=== PATIENT | female | born 1975 | race Caucasian/White ===

== ENCOUNTER → 2020-05-27 | Outpatient (CLI) | payer OTHER ==
[~2020-05-27] MED LIST: ACET1TAB33 PO; CYCL10TA2 PO; LIDO700A21 TP; OXYC1TAB22 PO; PREG150C PO; TRAZ-118 PO
--- NOTE | 2020-05-27 13:47 | PDOC1 ---
INITIAL PAIN CONSULT DATE OF SERVICE: DOS: DATE: 05/27/20 TIME: 13:39 CHIEF COMPLAINT: Chief Complaint: Neck and right upper extremity pain HISTORY OF PRESENT ILLNESS: 45-year-old female presents with history of pain base the neck right upper extremity beginning initially after an injury when she fell on some ice and struck her head in May 2018 now much worse since February 2020 without any secondary injury. Patient reports pain is in the base the neck rating the right upper extremity anteriorly posteriorly deltoid scapular region clavicle region as well as the entire arm anterior posterior to the fingers with some numbness into the thumb and first finger more specifically. Patient scribes pain is constant sharp throbbing shooting with numbness radiating pain in the right arm and hand changes during the day worse with activity with repetitive motions reaching or weight lifting patient ports the burning pain is also aching the base the neck and the upper extremity. Patient reports it wakes her from sleep least 4-5 times at night is effective bowel bladder control or ability to walk reports that it is difficult holding onto items has been dropping smaller items and has difficulty with tactile sensation on the right hand as well. Patient has done physical therapy and continues to do that as an outpatient is also taking oxycodone Neurontin Lyrica and Flexeril all of which does take the edge off of the pain but did not decrease it significantly. Patient did have MRI scan of the cervical spine which is not available for review at this time however she is recently seen her neurosurgeon yesterday, who is recommending a CT scan with contrast and we will await those results as well. Patient rates his stability of 0-10 10 being the worst is a 6 with him home responsibilities and recreation 7 with social activity and self-care 9 with occupational activities to a sexual behavior 7 with self-care and 8 with life support activities especially sleeping. PAST MEDICAL HISTORY: PMH: Concussion and balance issues otherwise patient's been in good health PREVIOUS SURGERIES: Past Surgical Hx: Anterior cervical discectomy 2018 CURRENT MEDICATIONS: Current Meds: Active Scripts Medications Dose Route/Sig Max Daily Dose Days Date Category Dose Instructions Trazodone Hcl 50 Mg Tablet 1 Tab PO QHS 05/27/20 Reported Lidocaine PATCH (Lidocaine) 1 Each Adh..patch 1 Each TP DAILY 05/27/20 Reported REMOVE AFTER 12 HOURS Cyclobenzaprine Hcl 10 Mg Tablet 1 Tab PO TID 05/27/20 Reported Lyrica (Pregabalin) 150 Mg Capsule 150 Mg PO BID 30 05/27/20 Reported Acetaminophen-Cod #3 Tablet (Acetaminophen/Codeine Phosphate) 1 Each Tablet 1 Tab PO PRN Q6HRS PRN 05/27/20 Reported Percocet 10-325 Mg Tablet (Oxycodone/Acetaminophen) 1 Each Tablet 1 Tab PO PRN Q6HRS PRN 05/27/20 Reported FAMILY HISTORY: Family Hx: No major medical problems or conditions SOCIAL HISTORY: Social Hx: Patient drinks alcohol maybe once a month does not smoke not use any illegal illicit recreational drugs is single lives locally has 1 child living at home with her and works as a nurse practitioner REVIEW OF SYSTEMS: ROS: Positive for those items mentioned in history of present illness, all systems are reviewed, otherwise negative, is complete full and well-documented on patient's chart PHYSICAL EXAM: VS: Blood pressure is 139/76 pulse 86 respiration 16 temperature is 98.1 F height is 5 foot 8 inches weight is 193 pounds. PE: PHYSICAL EXAMINATION: GENERAL: The patient is awake, alert, oriented, appropriate, very pleasant dem eanor HEENT: Shows normocephalic, atraumatic. Extraocular movements are intact and symmetrical. Oral cavity: Mucous membranes moist and pink. Dentition is intact. NECK: Shows anterior throat supple without palpable lymphadenopathy noted. Swallow reflex symmetrical. CHEST: Shows normal on inspection. Breath sounds are clear bilaterally. HEART: Shows S1, S2 clear. No murmurs auscultated. ABDOMEN: Soft, nontender, nondistended, obese. No palpable organomegaly is noted. No rebound or guarding demonstrated. BACK: Shows spine grossly in the midline. Normal-appearing cervical lordotic curvature. Cervical paraspinous muscles show symmetrical with inspection on palpation some moderate tenderness diffusely in the inferior aspect the cervical paraspinous musculature on the right only and into the superior medial trapezius as well. Patient shows good rotation motion cervical spine both laterally greater than 45 degrees right and left with full extension and full forward flexion with some minor tenderness with flexion only. There is slightly increased thoracic kyphosis, some minor flattening of the lumbar lordotic curvature. EXTREMITIES: Upper extremities show deep tendon reflexes 2+ in the biceps and triceps tendons. Motor exam is 4 on a scale of 5 with right ethyl blender, biceps and triceps flexion and 5/5 on the left. Peripheral pulses are 2+ radial. No peripheral edema is noted bilaterally. Shoulder shrug is strong and intact without loss of strength on resistance as is abduction of the shoulders at 90 degrees without loss of resistance bilaterally. Upper extremities are warm and dry to touch, equal in color and appearance. SKIN: Shows warm and dry, good turgor. No edema. No sores, rashes or bruising throughout. IMPRESSION: Impression: 45-year-old female with increasing pain base of neck right upper extremity in a C6-7 dermatomal distribution and following a radicular fashion times the past [address] scan with contrast pending Plan: Options were discussed with the patient including conservative medical management physical therapies interventional techniques that she is already doing physical therapy and has had conservative medical management as she is interested in interventional techniques. We discussed a cervical epidural steroid injection using description as well as anatomical model to describe the procedure. We will wait for preauthorization with insurance provider once this is obtained we will have her return for a translaminar C6-7 cervical epidural steroid injection. In the meantime patient will continue with stretching strength exercises and physical therapy as outlined. SUNDEEP ESQUIVEL MD May 27, 2020 13:47
== END | disposition home or self-care (01) ==
LOC: PNCL 07:31
PROVIDERS: ATTEND Anesthesiology
DX: M79.601 Pain in right arm (principal); M54.2 Cervicalgia; Z98.890 Other specified postprocedural states; Z79.899 Other long term (current) drug therapy
CPT/HCPCS: G0463

== ENCOUNTER → 2020-06-08 | Outpatient (CLI) | payer OTHER ==
[~2020-06-08] MED LIST changes: +IOHEXOL 300 MG/ML 100ML VIAL. IV ONE
--- NOTE | 2020-06-09 09:01 | KCIC ---
CT scan of the cervical spine without and with contrast 06/08/2020 CLINICAL HISTORY: Neck pain which radiates down the right arm since February 2020 . History of previ ous cervical surgery. TECHNIQUE: Contiguous, 0.625 mm axial sections were obtained through the cervical spine without and w ith use of intravenous contrast. 2 mm reconstructed sagittal, axial and coronal images were obtained. 75 cc of Omnipaque 300 were administered intravenously during this examination. One or more of the following individualized dose reduction techniques were utilized for this study: 1. Automated exposure control. 2. Adjustment of the mA and/or kV according to patient size. 3. Use of iterative reconstruction technique. FINDINGS: Comparison study is dated 05/05/2020. This was performed at [facility]. Sagittal and coronal reconstructed images demonstrate minimal lateral curvature of the cervical spine convex to the left. There is straightening of the normal cervical lordosis. The patient is post disc replacement at C5-6. No fracture or subluxation of the cervical vertebrae seen. No area of abnormal contrast enhancement i s noted. On the axial images throughout the cervical disc spaces, degenerative changes are seen consisting of minimal to mild generalized disc bulges and degenerative changes involving the uncovertebral and face t joints. These findings do not result in significant central spinal canal stenosis at any level. Curtis y mild right neural foraminal stenosis is seen at C3-4. No additional area of neural foraminal stenos is is seen. Since the previous examination there has been no significant interval change. IMPRESSION: 1. Post disc replacement at C5-6. 2. Degenerative changes are seen involving the cervical spine as discussed above. These findings do n ot result in significant central spinal canal stenosis. Very mild right neural foraminal stenosis is seen at C3-4. No acute osseous abnormality is seen. Electronically signed by: Anselmo Garrison MD (06/09/2020 8:59 AM) [id number]
== END ==
LOC: KCIC CT 10:17
PROVIDERS: ATTEND Neurological Surgery
DX: M47.22 Other spondylosis with radiculopathy, cervical region (principal); M48.02 Spinal stenosis, cervical region; M50.10 Cervical disc disorder with radiculopathy, unspecified cervical region
CPT/HCPCS: 72127; Q9967

== ENCOUNTER → 2020-06-11 | Outpatient (CLI) | payer OTHER ==
[~2020-06-11] MED LIST changes: +IOHEXOL 180 MG/ML 10 ML VIAL. ONE; -IOHEXOL 300 MG/ML 100ML VIAL. IV ONE; +methylPREDNISolone ACETATE 40 MG/ML VIAL. ONE; +methylPREDNISolone ACETATE 80 MG/ML VIAL. ONE
--- NOTE | 2020-06-11 08:29 | PDOC ---
Progress Note - Pain Clinic Date of Service: DOS: DATE: 06/11/20 TIME: 08:25 Diagnosis: Dx: Cervical radiculopathy with cervical degenerative disease and cervical postlaminectomy syndrome History or Present Illness: HPI: 45-year-old female returns for follow-up status post initial evaluation and preauthorization for cervical epidural steroid injection. Patient is obtained this now would like to proceed. Patient points still pain in the right upper extremity shoulder and base the neck as it was previously without significant change. Patient rates her pain as an 8 on scale 10 is worse with the past week 7 on average 5 its least and is a 7 today patient reports it is waking her from sleep least 5-6 times a night worse with weight lifting of the right upper extremity repetitive motions reaching over her head with her right arm. Patient scribes pain is aching and tight dull in the base the neck tingling and burning in the arm and shoulder radiating and constant unbearable at times. Patient reports no new motor or sensory deficits or other complaints Physical Exam: VS: Blood pressure is 124/87 pulse 77 respirations 16 temperature 97.4 F weight is 195 pounds PE: PHYSICAL EXAMINATION: GENERAL: The patient is awake, alert, oriented, appropriate, very pleasant demeanor HEENT: Shows normocephalic, atraumatic. Extraocular movements are intact and symmetrical. Oral cavity: Mucous membranes moist and pink. NECK: Shows anterior throat supple without palpable lymphadenopathy noted. Swallow reflex symmetrical. CHEST: Shows normal on inspection. Breath sounds are clear bilaterally. HEART: Shows S1, S2 clear. No murmurs auscultated. ABDOMEN: Soft, nontender, nondistended. No palpable organomegaly is noted. BACK: Shows spine grossly in the midline. Normal-appearing cervical lordotic curvature. Cervical paraspinous muscles show symmetrical on inspection with palpation some moderate tenderness diffusely bilaterally but only diffusely without significant radiation patient shows good rotation motion cervical spine both laterally greater than 45 degrees closer to 90 degrees right and left well is full extension full forward flexion without significant increase in pain or radicular symptoms. There is slightly increased thoracic kyphosis, some minor flattening of the lumbar lordotic curvature. EXTREMITIES: Upper extremities show deep tendon reflexes 2+ in the biceps and triceps tendons. Motor exam is 4 on a scale of 5 with right shop tailor, biceps and triceps flexion and 5/5 on the left. Peripheral pulses are 2+ radial. No peripheral edema is noted bilaterally. Upper extremities are warm and dry to touch, equal in color and appearance. SKIN: Shows warm and dry, good turgor. No edema. No sores, rashes or bruising throughout. Procedure: Procedure: Options were discussed with the patient. Patient chart reviews her current medication regimen updated current review of systems updated today as well. We will proceed with a cervical epidural steroid injection today with fluoroscopic guidance. Risks were discussed including but not limited to: Bleeding, infection, possibility of epidural hematoma and subsequent neurological compromise, dural puncture, headaches, spinal cord and/or nerve damage, side effects of steroid medication, and poor results regarding pain control. Patient understands wished to proceed. Patient will return to clinic in approximately 2 weeks for follow-up, was counseled as to return appointment activity level, and side effects to be aware of. Medication Injected: Med Injected: Procedure cervical epidural steroid injection at the C6-7 level, using local anesthetic under sterile prep and drape using C-arm fluoroscopic guidance under local anesthesia medications injected ; 120 mg Depo-Medrol + 5 mL normal saline and 2 mL contrast; condition at discharge is stable patient tolerated pro cedure well. and had no complications Condition at Discharge: Condition at Discharge: Condition at discharge is stable, patient tolerated the procedure well and had no complications. SUNDEEP ESQUIVEL MD Jun 11, 2020 08:29
== END | disposition home or self-care (01) ==
LOC: PNCL 07:50
PROVIDERS: ATTEND Anesthesiology
DX: M54.12 Radiculopathy, cervical region (principal); M96.1 Postlaminectomy syndrome, not elsewhere classified; Z79.899 Other long term (current) drug therapy
CPT/HCPCS: 62321; J1030; J1040; Q9965

== ENCOUNTER → 2020-06-23 | Outpatient (CLI) | payer OTHER ==
[~2020-06-23] MED LIST changes: -IOHEXOL 180 MG/ML 10 ML VIAL. ONE; +IOHEXOL 300 MG/ML 100ML VIAL. IV ONE; -methylPREDNISolone ACETATE 40 MG/ML VIAL. ONE; -methylPREDNISolone ACETATE 80 MG/ML VIAL. ONE
--- NOTE | 2020-06-24 09:41 | RAD ---
PQRS Compliance Statement: One or more of the following individualized dose reduction techniques were utilized for this examinat ion: 1. Automated exposure control 2. Adjustment of the mA and/or kV according to patient size 3. Use of iterative reconstruction technique CT NECK SOFT TISSUE WITH IV CONTRAST 06/23/2020 11:26 AM Indication: Right brachial plexus mass COMPARISON: MR brachial plexus 05/07/2020 TECHNIQUE: Multiple axial CT images of the neck soft tissues were obtained after the intravenous admi nistration of nonionic contrast. Coronal and sagittal reformats are provided. FINDINGS: The visualized brain parenchyma appears intact. The skull base is normal. The visualized paranasal si nuses and orbital contents are normal. The sella turcica and cavernous sinus regions appear intact. T he mastoid air cells are normal. The fossa of Rosenmuller is normal. The parotid space contents and phys ther space contents appear i ntact. The parapharyngeal spaces are normal. The submandibular and sublingual space contents appear intact. The epiglottis, aryepiglottic folds, and piriform sinuses are normal. The vallecula appears normal. The larynx and trachea are normal. The thyroid lobes appear intact. The carotid space contents are normal. There is no deep cervical chain adenopathy observed. The jugul odigastric regions appear intact. There is bulbous appearance of the right subclavian vein in the rig ht retroclavicular space. The perivertebral space contents are normal. The supraclavicular regions appear intact. The visualiz ed mediastinum is normal. The visualized lungs appear intact. C5-C6 disc replacement noted. Impression: 1. C5-C6 disc replacement is identified. 2. Stable bulbous appearance of the right subclavian vein within the right retroclavicular space. No definite soft tissue mass is visualized. Electronically signed by: Harriet Holguin MD (06/24/2020 9:38 AM) [id number]
== END | disposition home or self-care (01) ==
LOC: CT 11:18
PROVIDERS: ATTEND Anesthesiology
DX: M75.91 Shoulder lesion, unspecified, right shoulder (principal); G54.0 Brachial plexus disorders
CPT/HCPCS: 70491; Q9967

== ENCOUNTER → 2020-06-26 | Outpatient (CLI) | payer OTHER ==
[~2020-06-26] MED LIST changes: -IOHEXOL 300 MG/ML 100ML VIAL. IV ONE
--- NOTE | 2020-06-26 09:09 | PDOC ---
Progress Note - Pain Clinic Date of Service: DOS: DATE: 06/26/20 TIME: 09:05 Diagnosis: Dx: Cervical radiculopathy with cervical degenerative disc disease and cervical postlaminectomy syndrome History or Present Illness: HPI: 45-year-old female returns follow-up status post cervical epidural to injection x1. Patient reports about 60% improvement in the right upper extremity still some pain returning now over the past few days but for the first 2 weeks or so the pain is been fairly well controlled about [facility] patient reports still significant pain base the neck and shoulders upper bicep and tricep as well as the base of the neck on the right side only. Patient reports she is stopped taking her Lyrica and gabapentin as she felt they were not doing much good has not had any rebound increase in pain since discontinuing these about a week ago patient reports pain is a 9 on scale 10 is worse over the past week 7 on average 5 its least and is a 6 today. Patient ports aching sharp tight shooting burning and radiating dull and aching in the neck itself coming more constant with time after the last injection. Patient reports initially she was doing much better with activity doing household activities try with greater ease using her right upper extremity with repetitive motion more consistently sleeping better at night but the pain is now returning in the right upper extremity in a radicular fashion once again. Patient ports no new deficits. Physical Exam: VS: Blood pressure is 119/89 pulse 74 respiration 16 temperature 97.9 F height is 5 feet 8 inches 193 pounds PE: PHYSICAL EXAMINATION: GENERAL: The patient is awake, alert, oriented, appropriate, very pleasant demeanor HEENT: Shows normocephalic, atraumatic. Extraocular movements are intact and symmetrical. NECK: Shows anterior throat supple without palpable lymphadenopathy noted. Swallow reflex symmetrical. CHEST: Shows normal on inspection. Breath sounds are clear bilaterally. HEART: Shows S1, S2 clear. No murmurs auscultated. ABDOMEN: Soft, nontender, nondistended. No palpable organomegaly is noted. BACK: Shows spine grossly in the midline. Normal-appearing cervical lordotic curvature. Cervical paraspinous muscles show symmetrical with inspection on palpation some moderate tenderness diffusely in the inferior aspect of the right cervical paraspinous muscles in the superior medial trapezius but without specific trigger points without radiation. Patient has good rotation motion of the cervical spine both laterally as well as extension flexion without significant increase in pain. There is increased thoracic kyphosis, some flattening of the lumbar lordotic curvature. EXTREMITIES: Upper extremities show deep tendon reflexes 2+ in the biceps and triceps tendons. Motor exam is 4 on a scale of 5 with right tour escort strength, biceps and triceps flexion and 5/5 on the left. Peripheral pulses are 2+ posterior tibial. No peripheral edema is noted bilaterally. Upper extremities are warm and dry to touch, equal in color and appearance. SKIN: Shows warm and dry, good turgor. No edema. No sores, rashes or bruising throughout. Procedure: Procedure: Options were discussed with the patient. Patient's old chart was reviewed as her current medication regimen updated current review of systems updated today as well. We will preauthorize patient for second cervical epidural steroid injection she did very well after the first injection with the pain returning now in a radicular fashion following C5-6 dermatomal distribution on the right side. She will continue with stretching strength exercises as she has been doing as well as oral analgesics and oxycodone as prescribed. Patient return to clinic in approximately a 1 week we will plan on second translaminar cervical epidural steroid injection C5-6 at that time. Medication Injected: Med Injected: None Condition at Discharge: Condition at Discharge: Condition at discharge is stable. SUNDEEP ESQUIVEL MD Jun 26, 2020 09:09
== END | disposition home or self-care (01) ==
LOC: PNCL 08:16
PROVIDERS: ATTEND Anesthesiology
DX: M50.10 Cervical disc disorder with radiculopathy, unspecified cervical region (principal); M96.1 Postlaminectomy syndrome, not elsewhere classified; Z79.899 Other long term (current) drug therapy
CPT/HCPCS: 99212; G0463

== ENCOUNTER → 2020-07-03 | Outpatient (CLI) | payer OTHER ==
[~2020-07-03] MED LIST changes: +IOHEXOL 180 MG/ML 10 ML VIAL. ONE; +methylPREDNISolone ACETATE 40 MG/ML VIAL. ONE; +methylPREDNISolone ACETATE 80 MG/ML VIAL. ONE
--- NOTE | 2020-07-03 08:27 | PDOC ---
Progress Note - Pain Clinic Date of Service: DOS: DATE: 07/03/20 TIME: 08:24 Diagnosis: Dx: Cervical radiculopathy with cervical degenerative disease and cervical postlaminectomy syndrome History or Present Illness: HPI: 45-year-old female returns follow-up status post cervical epidural steroid injection x1. Patient reports doing very well after the first injection at 60% improvement initially but the pain returned fairly quickly into the right upper extremity base the neck and shoulder patient reports it is a 9 on scale 10 is worse over the past week 7 on average 6 its least and is a 6 today. Patient ports aching tight shooting tingling burning radiating can be constant and severe in the base the neck right shoulder right upper extremity in the forearm and hand with numbness and tingling in the fingers in the right hand as well. Patient reports still difficulty with fine motor movements with the right hand as well patient reports it wakes her from sleep about every 4-5 hours especially if she lays on her right side. Patient reports no new motor or sensory deficits no new bowel or bladder incontinence. Physical Exam: VS: Blood pressure is 119/84 pulse 73 respirations 18 temperature 97.6 3 Fahrenheit weight is 191 pounds PE: PHYSICAL EXAMINATION: GENERAL: The patient is awake, alert, oriented, appropriate, very pleasant demeanor HEENT: Shows normocephalic, atraumatic. Extraocular movements are intact and symmetrical. Oral cavity: Mucous membranes moist and pink. NECK: Shows anterior throat supple without palpable lymphadenopathy noted. Swallow reflex symmetrical. CHEST: Shows normal on inspection. Breath sounds are clear bilaterally. HEART: Shows S1, S2 clear. No murmurs auscultated. ABDOMEN: Soft, nontender, nondistended. No palpable organomegaly is noted. BACK: Shows spine grossly in the midline. Normal-appearing cervical lordotic cu rvature. There is slightly increased thoracic kyphosis, some minor flattening of the lumbar lordotic curvature. Lumbar paraspinous muscles show symmetrical on inspection, on palpation shows some moderate tenderness diffusely throughout the upper, middle and lower distribution of the paraspinous muscles bilaterally and also into the lower thoracic paraspinous musculature, firm and tender, but without specific trigger points, without radiation of pain. The patient has good rotational motion of the lumbar spine, both laterally as well as extension and flexion without significant difficulty. No tenderness over the spinous processes, sacrum or sacroiliac regions. EXTREMITIES: Upper extremities show deep tendon reflexes 2+ in the biceps and triceps tendons. Motor exam is 4 on a scale of 5 with right retail client solutions consultant, biceps and triceps flexion and 5/5 on the left. Peripheral pulses are 2+ radial. No peripheral edema is noted bilaterally. Upper extremities are warm and dry to touch, equal in color and appearance. SKIN: Shows warm and dry, good turgor. No edema. No sores, rashes or bruising throughout. Procedure: Procedure: Options were discussed with the patient. Patient's old chart was reviewed as her current medication regimen updated current review of systems updated today as well. We will proceed with a second in the series cervical epidural steroid injection today with fluoroscopic guidance. Risks were discussed including but not limited to: Bleeding, infection, possibility of epidural hematoma and subsequent neurological compromise, dural puncture, headaches, spinal cord and/or nerve damage, side effects of steroid medication, and poor results regarding pain control. Patient understands and wished to proceed. Patient will return to clinic in approximate 2 weeks for follow-up, was counseled as return appointment activity level, and side effects to be aware of. Medication Injected: Med Injected: Procedure cervical epidural steroid injection at the C6-7 level, using local anesthetic under sterile prep and drape using C-arm fluoroscopic guidance under local anesthesia medications injected ; 120 mg Depo-Medrol + 5 mL normal saline and 2 mL contrast; condition at discharge is stable patient tolerated procedure well. and had no complications Condition at Discharge: Condition at Discharge: Condition at discharge is stable, patient tolerated procedure well and had no complications. SUNDEEP ESQUIVEL MD Jul 03, 2020 08:27
--- NOTE | 2020-07-03 08:28 | PDOC4 ---
PROCEDURE Procedure Patient was consented for cervical epidural steroid injection. Risks were d iscussed including but not limited to: Bleeding, infection, possibility of epidural hematoma and subsequent neurological compromise, dural puncture, headaches, spinal cord and/or nerve damage, side effects of steroid medication, and poor results regarding pain control. Patient understands and wished to proceed. Procedure cervical epidural steroid injection at the C6-7 level, using local anesthetic under sterile prep and drape using C-arm fluoroscopic guidance under local anesthesia medications injected ; 120 mg Depo-Medrol + 5 mL normal saline and 2 mL contrast; condition at discharge is stable patient tolerated procedure well. and had no complications SUNDEEP ESQUIVEL MD Jul 03, 2020 08:28
== END | disposition home or self-care (01) ==
LOC: PNCL 07:44
PROVIDERS: ATTEND Anesthesiology
DX: M50.10 Cervical disc disorder with radiculopathy, unspecified cervical region (principal); M96.1 Postlaminectomy syndrome, not elsewhere classified; Z79.899 Other long term (current) drug therapy; Z98.890 Other specified postprocedural states
CPT/HCPCS: 62321; J1030; J1040; Q9965

== ENCOUNTER → 2020-07-17 | Outpatient (CLI) | payer OTHER ==
[~2020-07-17] MED LIST changes: -IOHEXOL 180 MG/ML 10 ML VIAL. ONE; -methylPREDNISolone ACETATE 40 MG/ML VIAL. ONE; -methylPREDNISolone ACETATE 80 MG/ML VIAL. ONE
--- NOTE | 2020-07-17 08:37 | PDOC ---
Progress Note - Pain Clinic Date of Service: DOS: DATE: 07/17/20 TIME: 08:33 Diagnosis: Dx: Cervical radiculopathy with cervical degenerative disease and cervical postlaminectomy syndrome History or Present Illness: HPI: 45-year-old female returns follow-up status post cervical epidural steroid injection x2. Patient reports about 75% improvement initially now about 50% improvement overall in the base the neck and right upper extremity patient reports significant decrease in pain after the last injection more so than after the first month and lasting for about 3 weeks. Patient reports he is still decreasing the pain with the pain is returning in the base the neck right shoulder right upper extremity right bicep into the forearm and hand with numbness and tingling in the thumb and first finger patient ports aching sharp dull tight shooting in the arm tingling and burning in the arm as well as radiat ing and aching and dull in the neck itself. Patient reports worse with repetitive motions lifting weights with the right arm reaching overhead with the right hand and repetitive motions especially driving. Patient reports it wakes her from sleep occasionally but only about once every 4-5 hours at the most. Patient reports she is sleeping better as increased activity doing household activities travel with greater ease as well patient rates her pain as a 9 to a 10 on scale 10 is worst the past week 5-6 on average and affords least is a 5 today. Patient reports no new motor or sensory deficits or other complaints. Physical Exam: VS: Blood pressure is 134/92 pulse 58 respirations 16 temperature 97.9 F weight is 196 pounds PE: PHYSICAL EXAMINATION: GENERAL: The patient is awake, alert, oriented, appropriate, very pleasant demea nor NECK: Shows anterior throat supple without palpable lymphadenopathy noted. Swallow reflex symmetrical. CHEST: Shows normal on inspection. Breath sounds are clear bilaterally. HEART: Shows S1, S2 clear. No murmurs auscultated. ABDOMEN: Soft, nontender, nondistended, obese. No palpable organomegaly is noted. No rebound or guarding demonstrated. BACK: Shows spine grossly in the midline. Normal-appearing cervical lordotic curvature. Cervical paraspinous muscles show symmetrical with inspection on pal pation some moderate tenderness diffusely in the inferior aspect of the paraspinous musculature bilaterally but without specific trigger points asymmetry or atrophy hypertrophy. Patient shows good rotation motion cervical spine some moderate tenderness with far right lateral rotation but not with extension or flexion. There is slightly increased thoracic kyphosis, some minor flattening of the lumbar lordotic curvature. EXTREMITIES: Upper extremities show deep tendon reflexes 2+ in the biceps and triceps tendons. Motor exam is 4 on a scale of 5 with right ointment mill tender, biceps and triceps flexion and 5/5 on the left. Peripheral pulses are 2+ radial. No peripheral edema is noted bilaterally. Upper extremities are warm and dry to touch, equal in color and appearance. SKIN: Shows warm and dry, good turgor. No edema. No sores, rashes or bruising throughout. Procedure: Procedure: Options were discussed with the patient. Patient will chart reviews her current medication regimen updated current review of systems updated today as well. We will preauthorize patient for third cervical epidural steroid injection as she is doing much better after the second with still radicular pain following a C6-7 dermatomal distribution in the right upper extremity. Patient continue with physical therapy exercises chiropractic treatments massage therapies and stretching on her own as currently. Patient be given refill prescription for Zanaflex as well as Percocet and Valium for prior to next procedure. Patient given instructions well side effects beware of each of the medications. Patient will follow up as scheduled we will plan on translaminar C6-7 level cervical epidural steroid injection at that time. Medication Injected: Med Injected: None Condition at Discharge: Condition at Discharge: Condition at discharge is stable. SUNDEEP ESQUIVEL MD Jul 17, 2020 08:36
== END | disposition home or self-care (01) ==
LOC: PNCL 08:05
PROVIDERS: ATTEND Anesthesiology
DX: M50.10 Cervical disc disorder with radiculopathy, unspecified cervical region (principal); M96.1 Postlaminectomy syndrome, not elsewhere classified; Z79.899 Other long term (current) drug therapy
CPT/HCPCS: 99212; G0463

== ENCOUNTER → 2020-07-28 | Outpatient (CLI) | payer OTHER ==
[~2020-07-28] MED LIST changes: +IOHEXOL 180 MG/ML 10 ML VIAL. ONE; +methylPREDNISolone ACETATE 40 MG/ML VIAL. ONE; +methylPREDNISolone ACETATE 80 MG/ML VIAL. ONE
--- NOTE | 2020-07-28 09:15 | PDOC4 ---
PROCEDURE Procedure Patient was consented for cervical epidural steroid injection. Risks were d iscussed including but not limited to: Bleeding, infection, possibility of epidural hematoma and subsequent neurological compromise, dural puncture, headaches, spinal cord and/or nerve damage, side effects of steroid medication, and poor results regarding pain control. Patient understands and wished to proceed. Procedure cervical epidural steroid injection at the C6-7 level, using local anesthetic under sterile prep and drape using C-arm fluoroscopic guidance under local anesthesia medications injected ; 120 mg Depo-Medrol + 5 mL normal saline and 2 mL contrast; condition at discharge is stable patient tolerated procedure well. and had no complications SUNDEEP ESQUIVEL MD Jul 28, 2020 09:15
--- NOTE | 2020-07-28 09:15 | PDOC ---
Progress Note - Pain Clinic Date of Service: DOS: DATE: 07/28/20 TIME: 09:12 Diagnosis: Dx: Cervical radiculopathy with cervical degenerative disc disease and cervical postlaminectomy History or Present Illness: HPI: 45-year-old female returns follow-up status post cervical epidural steroid injections x2. Patient reports doing very well after the last injection much better than after the first about 75% improvement initially and about 50% improvement overall in the neck and right upper extremity. Patient ports pain returning fairly significant is been waking her from sleep about every 4-6 hours worse with repetitive motion was reaching overhead with her right arm lifting items weightbearing and rotation of motion lifting over her head on the right side. Patient reports the pain is a 10 on scale 10 is worse over the past week 6-7 on average 4 to 5 days least is a 6 today. Patient reports no new motor or sensory deficits no new changes. Physical Exam: VS: Pressure is 136/100 pulse 81 respirations 18 temperature 97.4 F height is 5 feet 8 inches weight is 200 pounds PE: PHYSICAL EXAMINATION: GENERAL: The patient is awake, alert, oriented, appropriate, very pleasant demeanor HEENT: Shows normocephalic, atraumatic. Extraocular movements are intact and symmetrical. NECK: Shows anterior throat supple without palpable lymphadenopathy noted. Swal low reflex symmetrical. CHEST: Shows normal on inspection. Breath sounds are clear bilaterally. HEART: Shows S1, S2 clear. No murmurs auscultated. ABDOMEN: Soft, nontender, nondistended, obese. No palpable organomegaly is noted. No rebound or guarding demonstrated. BACK: Shows spine grossly in the midline. Normal-appearing cervical lordotic curvature. Cervical paraspinous muscles show symmetrical on inspection, on palpation some moderate tenderness diffusely but only diffusely in the inferior aspect of the cervical paraspinous musculature bilaterally more on the right than left into the superior medial trapezius. Patient shows good rotational motion of the cervical spine both laterally as well as extension flexion without significant increase in pain. There is slightly increased thoracic kyphosis, some minor flattening of the lumbar lordotic curvature. EXTREMITIES: Upper extremities show deep tendon reflexes 2+ in the biceps and triceps tendons. Motor exam is 4 on a scale of 5 with right light industrial, biceps and triceps flexion and 5/5 on the left. Peripheral pulses are 2+ radial. No peripheral edema is noted bilaterally. Upper extremities are warm and dry to touch, equal in color and appearance. SKIN: Shows warm and dry, good turgor. No edema. No sores, rashes or bruising throughout. Procedure: Procedure: Options were discussed with the patient. Patient chart reviews her current medication regimen updated current review of systems updated today as well. We will proceed with a third in the series cervical epidural steroid traction today with fluoroscopic guidance. Risks were discussed including but not limited to: Bleeding, infection, possibility of epidural hematoma and subsequent neurological compromise, dural puncture, headaches, spinal cord and/or nerve damage, side effects of steroid medication, and poor results regarding pain control. Patient understands and wished to proceed. Patient return to the clinic in approximate 2 weeks for follow-up, was counseled as to return appointment activity level and side effects to be aware of. Medication Injected: Med Injected: Procedure cervical epidural steroid injection at the C6-7 level, using local anesthetic under sterile prep and drape using C-arm fluoroscopic guidance under local anesthesia medications injected ; 120 mg Depo-Medrol + 5 mL normal saline and 2 mL contrast; condition at discharge is stable patient tolerated procedure well. and had no complications Condition at Discharge: Condition at Discharge: Condition at discharge is stable, patient alert procedure well had no co mplications. SUNDEEP ESQUIVEL MD Jul 28, 2020 09:15
== END ==
LOC: PNCL 08:34
PROVIDERS: ATTEND Anesthesiology
DX: M50.10 Cervical disc disorder with radiculopathy, unspecified cervical region (principal); M96.1 Postlaminectomy syndrome, not elsewhere classified; Z79.899 Other long term (current) drug therapy
CPT/HCPCS: 62321; J1030; J1040; Q9965

== ENCOUNTER → 2020-08-12 | Outpatient (CLI) | payer OTHER ==
[~2020-08-12] MED LIST changes: +BUPIVACAINE MPF 0.25% 10 ML VIAL. ONE; -IOHEXOL 180 MG/ML 10 ML VIAL. ONE; -methylPREDNISolone ACETATE 80 MG/ML VIAL. ONE
--- NOTE | 2020-08-12 08:51 | PDOC ---
Progress Note - Pain Clinic Date of Service: DOS: DATE: 08/12/20 TIME: 08:45 Diagnosis: Dx: Cervical radiculopathy with cervical degenerative disease and cervical postlaminectomy syndrome Myofascial pain History or Present Illness: HPI: 45-year-old female returns follow-up status post cervical tear injections x3. Patient reports about 30% improvement overall in the pain in the base the neck and right shoulder and upper extremity. She has had significant myofascial component with the pain as well we discussed trigger point injections after her last visit and has had preauthorization for that now as well. Patient continues to see a massage therapist is doing some deep tissue massage and has confirmed also significant myofascial pain and trigger points in the neck as well as the right shoulder greater than left. Patient reports her pain is a 9 on scale 10 is worse over the past week 6-7 on average 4-5 its least is a 6 today. Patient ports tingling and burning in the right arm and shoulder radiating to the right forearm and hand aching and dull in the neck and upper back as well as the right posterior shoulder tight and shooting in the right arm with radiating pain that can be constant severe with activity. Patient reports still having some numbness with raising her arm overhead on the right side and difficulty sleeping for the same symptoms. Patient reports she can usually reposition at night and get back to sleep but it happens about 5 hours or so. Patient reports no new motor or sensory deficits Physical Exam: VS: Pressure is 124/94 pulse 73 respirations 18 temperature is 97.8 F height is 5 feet 8 inches weight is 198 pounds PE: PHYSICAL EXAMINATION: GENERAL: The patient is awake, alert, oriented, appropriate, very pleasant demeanor HEENT: Shows normocephalic, atraumatic. Extraocular movements are intact and symmetrical. Oral cavity: Mucous membranes moist and pink. Dentition is intact. NECK: Shows anterior throat supple without palpable lymphadenopathy noted. Swallow reflex symmetrical. CHEST: Shows normal on inspection. Breath sounds are clear bilaterally, no rales or rhonchi. HEART: Shows S1, S2 clear. No murmurs auscultated. ABDOMEN: Soft, nontender, nondistended, obese. No palpable organomegaly is noted. No rebound or guarding demonstrated. BACK: Shows spine grossly in the midline. Normal-appearing cervical lordotic curvature. Cervical paraspinous muscles show symmetrical on inspection with palpation some very firm ropelike musculature in the bilateral superior and middle aspect of the cervical paraspinous musculature the right inferior aspect has very firm ropelike musculature consistent with trigger points as well. There are significant trigger points with very firm ropelike musculature very tender with palpation in the bilateral trapezius but much more severe on the right than the left and much more numerous also into the supra and infrascapular regions on the right with very firm ropelike musculature as well as a thoracic paraspinous musculature on the right very firm tender but without specific radiation with the trigger point areas palpated. Patient shows good rotation mo tion of the cervical spine both laterally as well as full extension full forward flexion without significant increase in pain. There is slightly increased thoracic kyphosis, some minor flattening of the lumbar lordotic curvature. EXTREMITIES: Upper extremities show deep tendon reflexes 2+ in the biceps and triceps tendons. Motor exam is 4 on a scale of 5 with right strength, biceps and triceps flexion and 5/5 on the left. Peripheral pulses are 2+ radial. No peripheral edema is noted bilaterally. Upper extremities are warm and dry to touch, equal in color and appearance. SKIN: Shows warm and dry, good turgor. No edema. No sores, rashes or bruising throughout. Procedure: Procedure: Options were discussed with the patient. Patient's old chart was reviewed as her current medication regimen updated current review of systems updated today as well. We will proceed with trigger point injections of the identified musculature in the bilateral cervical paraspinous posterior bilateral trapezius right supra and infrascapular musculature in the right thoracic paraspinous musculature. Risk discussed including but not limited to bleeding infection possibility of intravascular injection sequelae spread to local anesthetic and numbness pneumothorax side effects steroid medication and portal scarring pain control. Patient understands wished to proceed. Patient will return to clinic in approximate 2 weeks for follow-up, was counseled as to return appointment activity level and side effects be aware. We will also order physical therapy with deep tissue massage as well as cervical traction and myofascial release. Medication Injected: Med Injected: Under sterile prep and drape patient in sitting position patient's cervical paraspinous posture as well as trapezius musculature bilaterally and right supra and infrascapular region as well as a thoracic paraspinous musculature trigger points were identified and injected using a 25-gauge needle with a total of 1 cc of 0.25% ropivacaine per injection for a total of 10 cc and total of 40 mg Depo- Medrol in the 10 cc solution. Patient tolerated the procedure well and had no complications. Condition at Discharge: Condition at Discharge: Condition at discharge is stable, patient tolerated procedure well and had no complications. SUNDEEP ESQUIVEL MD Aug 12, 2020 08:51
--- NOTE | 2020-08-12 08:52 | PDOC4 ---
PROCEDURE Procedure Patient was consented for trigger point injections. Risk were discussed inc luding but not limited to bleeding infection possibility of intravascular injection sequelae spread to local anesthetic and numbness pneumothorax side effects of steroid medication and portal scarring pain control. Patient understands wished to proceed. Patient will return to clinic in approximately 2 weeks for follow-up. Under sterile prep and drape patient in sitting position patient's cervical paraspinous posture as well as trapezius musculature bilaterally and right supra and infrascapular region as well as a thoracic paraspinous musculature trigger points were identified and injected using a 25-gauge needle with a total of 1 cc of 0.25% ropivacaine per injection for a total of 10 cc and total of 40 mg Depo- Medrol in the 10 cc solution. Patient tolerated the procedure well and had no complications. SUNDEEP ESQUIVEL MD Aug 12, 2020 08:52
== END | disposition home or self-care (01) ==
LOC: PNCL 07:54
PROVIDERS: ATTEND Anesthesiology
DX: M50.10 Cervical disc disorder with radiculopathy, unspecified cervical region (principal); M96.1 Postlaminectomy syndrome, not elsewhere classified; M79.18 Myalgia, other site; Z79.899 Other long term (current) drug therapy
CPT/HCPCS: 20553; J1030; J3490

== ENCOUNTER → 2020-09-02 | Outpatient (CLI) | payer OTHER ==
--- NOTE | 2020-09-02 08:53 | PDOC ---
Progress Note - Pain Clinic Date of Service: DOS: DATE: 09/02/20 TIME: 08:46 Diagnosis: Dx: Cervical radiculopathy with cervical degenerative disc disease and cervical postlaminectomy syndrome Myofascial pain Occipital neuralgia History or Present Illness: HPI: 45-year-old female returns follow-up status post trigger point injections and cervical epidural steroid injections. Patient reports that treatment injections were helpful and she is also seeing a new physical therapist which is helpful and massage therapist with some trigger point releases which she reports is helpful as well both by about 50% or so but not long-lasting. Patient reports pain still in the base the neck and shoulders also significant occipital headaches which we discussed with her on her last visit more on the right than the left but present bilaterally patient reports the pain is also the base of the neck right upper extremity with difficulty moving the arm significant difficulty and pain with numbness with reaching the arm over 90 degrees abduction and over the head with the right hand patient reports that her pain is a 9 on scale 10 is worse over the past week 7 on average 5 its least is a 7 today patient scribes aching tight shooting tingling and burning in the neck radiating the arm can be constant severe with activity and trying to write or fine motor movements are very difficult as well patient reports it wakes her from sleep about every 5-6 hours. Patient reports no overt motor loss but significant fatigability numbness and tingling in the right upper extremity with repetitive motions even with writing and fine motor movements. Patient reports the headaches are significant and causing some visual disturbance but only usually in the morning when it is at its worst with pain in the posterior occi pital region radiating superiorly into the parietal region and into the forehead as well. Physical Exam: VS: Blood pressure is 44/87 pulse 74 respirations 18 temperature 97.8 F height 5 feet 8 inches weight is 203 pounds PE: PHYSICAL EXAMINATION: GENERAL: The patient is awake, alert, oriented, appropriate, very pleasant mahnaz anor HEENT: Shows normocephalic, atraumatic. Extraocular movements are intact and symmetrical. Oral cavity: Mucous membranes moist and pink. Dentition is intact. NECK: Shows anterior throat supple without palpable lymphadenopathy noted. Swallow reflex symmetrical. CHEST: Shows normal on inspection. Breath sounds are clear bilaterally. HEART: Shows S1, S2 clear. No murmurs auscultated. ABDOMEN: Soft, nontender, nondistended, obese. BACK: Shows spine grossly in the midline. Normal-appearing cervical lordotic curvature. Cervical paraspinous muscles show symmetrical inspection on palpation some very firm ropelike musculature in the right greater than left superior middle and inferior aspect the cervical paraspinous musculature left testis tenderness in the inferior aspect with very firm ropelike musculature bilaterally consistent with trigger point areas of musculature this is true into the superior medial trapezius greater on the right but on the left as well also in the suprascapular and infrascapular region on the right side very firm ropelike musculature consistent with trigger point areas on the right side as well. Patient's posterior occipital region shows no significant abnormalities but firm tenderness with palpation over the nuchal ridge as well as the occipital nerve bilaterally. There is slightly increased thoracic kyphosis, some minor flattening of the lumbar lordotic curvature. EXTREMITIES: Upper extremities show deep tendon reflexes 2+ in the biceps and triceps tendons. Motor exam is 4 on a scale of 5 with right recovery operator strength, biceps and triceps flexion and 5/5 on the left. Peripheral pulses are 2 radial. No peripheral edema is noted bilaterally. Upper extremities are warm and dry to touch, equal in color and appearance. SKIN: Shows warm and dry, good turgor. No edema. No sores, rashes or bruising throughout. Procedure: Procedure: Options were discussed with the patient. Patient chart reviews her current medication regimen updated current review of systems updated today as well. We will proceed with bilateral greater and lesser occipital nerve blocks also trigger point injections of the identified musculature. Risk discussed including but not limited to bleeding infection possibility of intravascular injection sequelae spread local anesthetic pneumothorax side effects steroid medication and portal scarring pain control. Patient understands wishes to proceed. Return to the clinic in approximate 2 weeks for follow-up, was counseled as to return appointment activity level and side effects to be aware of. Patient continue with physical therapy as well as massage therapy. Medication Injected: Med Injected: Under sterile prep and drape patient in sitting position patient's posterior occiput was sterilely prepped and draped and bifurcating from the occipital protuberance to the mastoid process with well palpated occipital pulse occipital nerve blocks were carried out bilaterally using 25-gauge needle after negative aspiration injecting 5 cc each side of 0.25% bupivacaine and 20 mg Depo-Medrol. Sterile prep and drape with patient cervical paraspinous posterior as well as the trapezius and suprascapular regions trigger points were identified and injected after negative aspiration each injection site using a 25-gauge needle with 1 cc of 0.25% Vivacaine at each site for a total of 12 cc for the trigger point injections and total of 20 mg Depo-Medrol. Patient tolerated the procedures well and had no complications. Condition at Discharge: Condition at Discharge: Condition at discharge stable, patient tolerated procedures well and had no complications. SUNDEEP ESQUIVEL MD Sep 02, 2020 08:53
--- NOTE | 2020-09-02 08:53 | PDOC4 ---
PROCEDURE Procedure Patient was consented for bilateral greater and lesser occipital nerve blocks and trigger point injections. Risk were discussed including but not limited to bleeding infection possibility of intravascular injection sequelae spread to local anesthetic numbness pneumothorax and side effects of steroid medication. Under sterile prep and drape patient in sitting position patient's posterior occiput was sterilely prepped and draped and bifurcating from the occipital protuberance to the mastoid process with well palpated occipital pulse occipital nerve blocks were carried out bilaterally using 25-gauge needle after negative aspiration injecting 5 cc each side of 0.25% bupivacaine and 20 mg Depo-Medrol. Sterile prep and drape with patient cervical paraspinous posterior as well as the trapezius and suprascapular regions trigger points were identified and injected after negative aspiration each injection site using a 25-gauge needle with 1 cc of 0.25% Vivacaine at each site for a total of 12 cc for the trigger point injections and total of 20 mg Depo-Medrol. Patient tolerated the procedures well and had no complications. SUNDEEP ESQUIVEL MD Sep 02, 2020 08:53
== END | disposition home or self-care (01) ==
LOC: PNCL 08:00
PROVIDERS: ATTEND Anesthesiology
DX: M54.81 Occipital neuralgia (principal); M50.10 Cervical disc disorder with radiculopathy, unspecified cervical region; M96.1 Postlaminectomy syndrome, not elsewhere classified; M79.18 Myalgia, other site; Z79.899 Other long term (current) drug therapy
CPT/HCPCS: 20553; J1030; J3490